=== PATIENT | female | born 1965 | race Hispanic/Latino ===

== ENCOUNTER 2019-01-04 12:38 | Outpatient (CLI) | payer OTHER ==
--- NOTE | 2019-01-04 16:01 | RAD ---
PA AND LATERAL CHEST: 01/04/19 HISTORY: Cough. Heart size and mediastinum are within normal limits. The lungs are clear of infiltrates. There is min imal scoliotic change of the spine. IMPRESSION: No active intrathoracic disease. POS: [facility]
--- NOTE | 2019-01-04 16:03 | RAD ---
SINUS SERIES THREE VIEWS: 01/04/19 HISTORY: Cough. Sinus congestion. Frontal, sphenoid, ethmoid and maxillary sinuses all appear clear other than what may be some very joya btle mucosa change of the right maxillary sinus. IMPRESSION: Questionable minimal mucosa change along the lateral wall of the right maxilla. POS: [facility]
== END 2019-01-04 12:39 | disposition home or self-care (01) ==
LOC: BICRAD 12:38
PROVIDERS: ATTEND Internal Medicine
DX: J45.50 Severe persistent asthma, uncomplicated (principal); J01.90 Acute sinusitis, unspecified
CPT/HCPCS: 70220; 71046

== ENCOUNTER 2021-05-03 14:15 | Outpatient (CLI) | payer OTHER | END 2021-05-03 14:16 | disposition home or self-care (01) | LOC: BICRAD 14:15 | PROVIDERS: ATTEND Family Medicine | DX: Z13.83 Encounter for screening for respiratory disorder NEC (principal); M51.86 Other intervertebral disc disorders, lumbar region; R93.41 Abnormal radiologic findings on diagnostic imaging of renal pelvis, ureter, or bladder; M47.816 Spondylosis without myelopathy or radiculopathy, lumbar region; M41.86 Other forms of scoliosis, lumbar region | CPT/HCPCS: 71046; 72100; 72170 ==

== ENCOUNTER 2021-05-27 14:44 | Outpatient (CLI) | payer OTHER | END 2021-05-27 14:45 | disposition home or self-care (01) | LOC: BICMAMMO 14:44 | PROVIDERS: ATTEND Family Medicine | DX: Z12.31 Encounter for screening mammogram for malignant neoplasm of breast (principal); M85.80 Other specified disorders of bone density and structure, unspecified site | CPT/HCPCS: 77063; 77067; 77080 ==

== ENCOUNTER 2022-12-08 19:30 | Outpatient (CLI) | payer OTHER | END 2022-12-08 19:31 | disposition home or self-care (01) | LOC: SLEEPLAB 19:30 | PROVIDERS: ATTEND Psychiatry & Neurology Neurology | DX: G47.33 Obstructive sleep apnea (adult) (pediatric) (principal); R06.83 Snoring | CPT/HCPCS: 95810 ==

== ENCOUNTER 2025-05-21 15:45 | Outpatient (CLI) | payer OTHER | END 2025-05-21 15:46 | disposition home or self-care (01) | LOC: BICRAD 15:45 | PROVIDERS: ATTEND Family Medicine | DX: R07.9 Chest pain, unspecified (principal); M25.511 Pain in right shoulder; G89.4 Chronic pain syndrome | CPT/HCPCS: 71046 ==